=== PATIENT | female | born 1945 | race Caucasian/White ===

== ENCOUNTER 2018-07-21 08:46 | Day surgery (SDC) | payer MEDICARE, OTHER ==
[~2018-07-21 08:46] MED LIST: CALCIUM 600 +1 EAC2 PO; CEPH500; CHOL10002 PO; ESTR1; ESTR2 PO; GINKO BILOBA; LEVSOD125 PO; MOVEFREE PO; MULVITA; [UNRECOGNIZED DRUG - OTHER] PO
[2018-07-27] MEDS ORDERED: BIOTIN-D1 GM PO (11:24)
== END 2018-07-21 22:52 | disposition home or self-care (01) ==
LOC: RAD 08:46
DX: T84.030A Mechanical loosening of internal right hip prosthetic joint, initial encounter (principal)
CPT/HCPCS: 20610; 77002; 87070; 87075; 87205

== ENCOUNTER 2018-08-15 10:30 | Inpatient (IN) | payer MEDICARE, OTHER ==
[~2018-08-15] VITALS: Ht 172.7 cm; Wt 109.7 kg
[~2018-08-15 10:30] MED LIST changes: +BIOTIN-D1 GM PO
--- NOTE | 2018-08-30 07:24 | NUR ---
Ambulatory in Day Surgery History, Chart, Medications and Allergies reviewed before start of procedure.Patient confirms NPO status and agrees with scheduled surgery. Patient reports completing Chlorhexadine shower X2 prior to admission to hospital.Surgical site prepped with 2% Chlorhexidine cloth wipe.
--- NOTE | 2018-08-30 08:39 | NUR ---
08/30/18 0839 Josep Da Silva SECOND 18G IV PLACED BY THIS RN IN LEFT AC.
--- NOTE | 2018-08-30 14:52 | NUR ---
Pt gave permission to , [facility] permission to provide care 08/31/18.
--- NOTE | 2018-08-30 19:13 | NUR ---
SUMMARY DR. STYLES SAW PT THIS EVENING, NICOTINE PATCH ORDERED, PT TRIED TO AMBULATE OUTSIDE TO SMOKE BUT WAS TOO PAINFUL, MEDICATED WITH IV FENTANYL, DENIES ANY NAUSEA OR LOOSE STOOLS, NO ACUTE CHANGES THIS SHIFT.
--- NOTE | 2018-08-30 19:17 | NUR ---
SUMMARY DENIES ANY PAIN, MARIETTA MCCRACKEN FROM PACU REPORTS PT WAS NOT BLADDER SCANNED IN PACU, BLADDER SCAN DONE THIS AFTERNOON, PT HAD 272CC, STRAIGHT CATH DONE, DRAINED 300CC CLEAR YELLOW URINE, DRESSINGS C/D/I, NO ACUTE CHANGES THIS SHIFT.
[2018-08-31 04:31] LABS: BASOPHILS ABSOLUTE AUTO 0.02 K/mm3 (0.00-0.23); BASOPHILS PERCENT AUTO 0 % (0-2); EOSINOPHILS ABSOLUTE AUTO 0.02 K/mm3 (0.00-0.68); EOSINOPHILS PERCENT AUTO 0 % (0-6); Hematocrit 30.8 % (33.0-51.0); IMMATURE GRAN ABSOLUTE AUTO 0.03 K/mm3 (0.00-0.10); IMMATURE GRAN PERCENT AUTO 0 % (0-1); LYMPHOCYTES ABSOLUTE AUTO 1.47 K/mm3 (0.84-5.20); LYMPHOCYTES PERCENT AUTO 12 % (21-46); MONOCYTES ABSOLUTE AUTO 1.11 K/mm3 (0.16-1.47); MONOCYTES PERCENT AUTO 9 % (4-13); Mean Corpuscular HGB 31.2 pg (26.0-34.0); Mean Corpuscular HGB Conc 32.5 g/dL (31.5-36.5); Mean Corpuscular Volume 96 fL (80-100); Mean Platelet Volume 10.2 fL (9.1-12.4); NEUTROPHILS ABSOLUTE AUTO 9.35 K/mm3 (1.96-9.15); NEUTROPHILS PERCENT AUTO 78 % (41-73); Platelet Count 251 K/mm3 (150-400); RDW Coefficient Variation 13.9 % (11.7-14.2); RDW Standard Deviation 49.1 fL (35.1-46.3); Red Blood Cell Count 3.21 M/mm3 (3.80-5.20)
[2018-08-31 04:48] LABS: Anion Gap 8 mmol/L (6-16); Blood Urea Nitrogen 12 mg/dL (8-24); Bun/Creatinine Ratio 18.9 (12.0-20.0); CO2, Blood 26 mmol/L (21-32); Calcium, Blood 8.1 mg/dL (8.5-10.1); Chloride, Blood 107 mmol/L (98-108); Creatinine, Blood 0.63 mg/dL (0.40-1.00); Glomerular Filtration Rate >60 (60-); Glucose, Blood 106 mg/dL (70-99); Sodium, Blood 141 mmol/L (136-145)
--- NOTE | 2018-08-31 05:18 | NUR ---
SHIFT SUMMARY PT IS POD 1 R TOTAL HIP. 1 ASSIST UP W/ GB AND FWW TO THE BSC, ABLE TO TOLERATE BRIEF AMBULATION. SHE DID NOT HAVE TO BE CATH'D SHE WAS ABLE TO GET UP TO THE BSC AND VOID. PT IS A&O, ABLE TO MAKE NEEDS KNOWN. PAIN WITH MOVEMENT WHICH ABATES AT REST. PROVENA WOUND VAC IN PLACE, SUCTION INTACT. PT TO WORK WITH PT TODAY. WILL CTM UNTIL PASS TO NEXT SHIFT.
--- NOTE | 2018-08-31 09:49 | NUR ---
ASSISTED WITH AM ASSESSMENT PERFORMED BY SN LUND. DOCUMENTATION BY ASHELY ROWE REVIEWED. WILL CONTINUE TO MONITOR PT.
--- NOTE | 2018-08-31 18:06 | NUR ---
SHIFT SUMMARY PAIN HAS BEEN MANAGED WITH PO PAIN MEDICATION. PT IS A 1 ASSIST WHEN OOB; HOWEVER SHE DID NOT PASS THERAPY THIS AFTERNOON SO SHE WILL STAY ANOTHER NIGHT. VSS. WILL MONTOR UNTIL REPORT TO ONCOMING RN.
--- NOTE | 2018-09-01 07:33 | NUR ---
SUMMARY PT SLEPT OFF AND ON TONIGHT. REPORTED ADEQUATE PAIN CONTROL. VOIDING WITHOUT DIFF.
[2018-09-01] MEDS ORDERED: OXYC5 PO (11:41)
[2018-09-01] MEDS ORDERED: ASPI325EC PO (11:51)
--- NOTE | 2018-09-01 12:30 | NUR ---
[employer]ESS[employer] ATTEMPTED TO CHANGE WOUND VAC MACHINE FROM HOSPITAL MACHINE TO HOME MACHINE. THE HOME MACHINE HOLDS SUCTION BUT RUNS CONTINUOUSLY AND ALARMS INDICATING A LEAK IN THE TUBING. THE TUBING APPEARS TO BE COMPATIBLE AND NO LEAK WAS PRESENT PRIOR TO CHANGING THE MACHINE. HAVE ATTEMPTED TO RESTART THE MACHINE, ALL CONNECTIONS APPEAR TO BE WELL ATTATCHED. ATTEMPTED TO USE A DIFFERENT [employer] MACHINE, UNABLE TO DO SO SINCE THE CONNECTION WAS NOT COMPATIBLE. CALL PLACED TO DR. GARIBAY'S OFFICE AT APPROXIMATELY [id number]; AWAITING RETURN CALL.
--- NOTE | 2018-09-01 14:40 | NUR ---
SURGICAL DRESSING UNABLE TO GET A SEAL ON [employer] DRESSING WITH [facility] VAC FOR HOME. DR. GARIBAY WAS NOTIFIED AND ORDERED [employer] IF [employer] DRESSING WOULD NOT REMAIN SEALED. THE [facility] INDICATED THERE WAS A LEAK IN THE TUBING, TUBING WAS CHANGED AND LEAK PERSISTED. LEAK WAS NOT PRESENT WHEN ATTATCHED TO THE HOSPITAL VAC MACHINE. PER ORDER [employer] DRESSING WAS PLACED.
--- NOTE | 2018-09-01 16:14 | NUR ---
DISCHARGE PT PROVIDED WITH WRITTEN AND VERBAL DISCHARGE INSTRUCTIONS. PT AND S/O REPORTED UNDERSTANDING AFTER QUESTIONS WERE ANSWERED. REPLACEMENT DRESSINGS AND SCRIPT PROVIDED. PT ESCORTED OUT IN W/C BY LEANDRA MCKINNEY.
== END 2018-09-01 15:15 | disposition home or self-care (01) | DRG 468 ==
LOC: PRE IP 10:45 → SURS 08-30 06:10 → PRE IP 08-30 07:30 → SURS 08-30 14:24
PROVIDERS: ADMIT Orthopaedic Surgery
PROC: 0SW90JZ Revision of Synthetic Substitute in Right Hip Joint, Open Approach (ICD-10-PCS; principal; 2018-08-30 07:30)
DX: T84.030A Mechanical loosening of internal right hip prosthetic joint, initial encounter (principal); T84.050A Periprosthetic osteolysis of internal prosthetic right hip joint, initial encounter; E03.9 Hypothyroidism, unspecified
CPT/HCPCS: 36415; 72170; 80048; 83735; 85025; 86850; 86900; 86901; 97110; 97116; 97162; 97530; C1713; C1776; J0171; J0330; J0690; J0735; J1100; J1885; J2250; J2370; J2405; J2710; J2795; J3010; J7120

== ENCOUNTER 2018-10-16 09:54 | Emergency (ER) | payer MEDICARE, OTHER ==
[~2018-10-16] VITALS: Ht 172.7 cm; Wt 109.3 kg
[~2018-10-16 09:54] MED LIST changes: +ASPI325EC PO; +OXYC5 PO
== END 2018-10-16 13:11 | disposition home or self-care (01) ==
LOC: ER 09:54
DX: T84.020A Dislocation of internal right hip prosthesis, initial encounter (principal); X50.9XXA Other and unspecified overexertion or strenuous movements or postures, initial encounter; Z91.048 Other nonmedicinal substance allergy status; Z79.899 Other long term (current) drug therapy; Z79.82 Long term (current) use of aspirin; E03.9 Hypothyroidism, unspecified
CPT/HCPCS: 27265; 73501; 73502; 96374-59; 99152; 99283-25; J2405; J2704; J7030

== ENCOUNTER → 2020-04-23 | Outpatient (CLI) | payer MEDICARE, OTHER ==
[~2020-04-23] MED LIST changes: +LEVSOD150 PO
== END | disposition home or self-care (01) ==
LOC: PLD 09:22 → LAB SHORT 09:22
DX: L81.4 Other melanin hyperpigmentation (principal)
CPT/HCPCS: 88305; 88312

== ENCOUNTER → 2021-01-03 | Outpatient (CLI) | payer MEDICARE, OTHER | END | disposition home or self-care (01) | LOC: LAB SHORT 14:04 → LAB 14:04 | DX: R30.0 Dysuria (principal) | CPT/HCPCS: 87086 ==

== ENCOUNTER → 2022-04-06 | Outpatient (CLI) | payer MEDICARE, OTHER ==
[2022-04-06 13:08] LABS: BASOPHILS ABSOLUTE AUTO 0.06 K/mm3 (0.00-0.23); BASOPHILS PERCENT AUTO 1 % (0-2); EOSINOPHILS ABSOLUTE AUTO 0.18 K/mm3 (0.00-0.68); EOSINOPHILS PERCENT AUTO 3 % (0-6); Hematocrit 38.5 % (33.0-51.0); Hemoglobin 12.8 g/dL (11.5-16.0); IMMATURE GRAN ABSOLUTE AUTO 0.02 K/mm3 (0.00-0.10); IMMATURE GRAN PERCENT AUTO 0 % (0-1); LYMPHOCYTES ABSOLUTE AUTO 1.49 K/mm3 (0.84-5.20); LYMPHOCYTES PERCENT AUTO 20 % (21-46); MONOCYTES ABSOLUTE AUTO 0.63 K/mm3 (0.16-1.47); MONOCYTES PERCENT AUTO 9 % (4-13); Mean Corpuscular HGB 30.3 pg (26.0-34.0); Mean Corpuscular HGB Conc 33.2 g/dL (31.5-36.5); Mean Corpuscular Volume 91 fL (80-100); Mean Platelet Volume 11.8 fL (9.1-12.4); NEUTROPHILS ABSOLUTE AUTO 4.92 K/mm3 (1.96-9.15); NEUTROPHILS PERCENT AUTO 67 % (41-73); Platelet Count 318 K/mm3 (150-400); RDW Coefficient Variation 14.6 % (11.7-14.2); RDW Standard Deviation 48.7 fL (35.1-46.3); Red Blood Cell Count 4.23 M/mm3 (3.80-5.20)
[2022-04-06 14:08] LABS: Albumin, Blood 3.6 g/dL (3.4-5.0); Albumin/Globulin Ratio 1.2 (0.8-1.8); Bilirubin, Total 0.3 mg/dL (0.1-1.0); Bun/Creatinine Ratio 23.8 (12.0-20.0); Calcium, Blood 9.3 mg/dL (8.5-10.1); Creatinine, Blood 0.72 mg/dL (0.40-1.00); Globulin, Blood 3.1 g/dL (2.2-4.0); Total Protein, Blood 6.7 g/dL (6.4-8.2)
== END ==
LOC: LAB SHORT 12:11 → LAB 12:11
PROVIDERS: Physician Assistant
DX: R53.83 Other fatigue (principal); R19.7 Diarrhea, unspecified; R30.0 Dysuria
CPT/HCPCS: 80053; 85025; 87086

== ENCOUNTER → 2022-04-07 | Outpatient (CLI) | payer MEDICARE, OTHER ==
[2022-04-07 13:19] LABS: Adenovirus F 40/41 Not Detected (NOT DETECT); Astrovirus Not Detected (NOT DETECT); Campylobacter Sp Not Detected (NOT DETECT); Cryptosporidium Not Detected (NOT DETECT); Cyclospora Cayetanensis Not Detected (NOT DETECT); E. Coli O157 Not Detected (NOT DETECT); Entamoeba Histolytica Not Detected (NOT DETECT); Enteroaggregative E. coli-EAEC Not Detected (NOT DETECT); Enteropathogenic E. coli-EPEC Not Detected (NOT DETECT); Enterotoxigenic E. coli-ETEC Not Detected (NOT DETECT); Giardia Lamblia Not Detected (NOT DETECT); Norovirus GI/GII Not Detected (NOT DETECT); Plesiomonas Shigelloides Not Detected (NOT DETECT); Rotavirus A Not Detected (NOT DETECT); Salmonella Sp Not Detected (NOT DETECT); Sapovirus Not Detected (NOT DETECT); Shiga Toxin-prod E. coli-STEC Not Detected (NOT DETECT); Shigella/Enteroin E. coli-EIEC Not Detected (NOT DETECT); Vibrio Cholerae Not Detected (NOT DETECT); Vibrio Sp Not Detected (NOT DETECT); Yersinia Enterocolitica Not Detected (NOT DETECT)
== END ==
LOC: LAB 07:30 → LAB SHORT 07:30
PROVIDERS: Physician Assistant
DX: R19.7 Diarrhea, unspecified (principal)
CPT/HCPCS: 87507

== ENCOUNTER 2022-05-03 11:57 | Day surgery (SDC) | payer MEDICARE, OTHER ==
[~2022-05-03] VITALS: Ht 172.7 cm; Wt 94.3 kg
[2022-05-03] MEDS ORDERED: CALCA500S6 (12:24)
[2022-05-03] MEDS ORDERED: GLUCHON (12:24)
[2022-05-03] MEDS ORDERED: PSYSENPA (12:24)
== END 2022-05-03 13:55 | disposition home or self-care (01) ==
LOC: ORSCSDS 11:57
PROVIDERS: Internal Medicine Gastroenterology
PROC: 0DBE8ZX Excision of Large Intestine, Via Natural or Artificial Opening Endoscopic, Diagnostic (ICD-10-PCS; principal; 2022-05-03 13:30)
PROC: 0DBP8ZX Excision of Rectum, Via Natural or Artificial Opening Endoscopic, Diagnostic (ICD-10-PCS; principal; 2022-05-03 13:30)
DX: R19.7 Diarrhea, unspecified (principal); K57.30 Diverticulosis of large intestine without perforation or abscess without bleeding; K62.1 Rectal polyp; K52.832 Lymphocytic colitis; Z79.899 Other long term (current) drug therapy
CPT/HCPCS: 88305; J2704; J7120

== ENCOUNTER → 2022-07-09 | Outpatient (CLI) | payer MEDICARE, OTHER ==
[~2022-07-09] MED LIST changes: +CALCA500S6; +GLUCHON; +PSYSENPA
== END | disposition home or self-care (01) ==
LOC: LAB SHORT 14:03
DX: N39.0 Urinary tract infection, site not specified (principal)
CPT/HCPCS: 87077; 87086; 87186

== ENCOUNTER → 2024-02-06 | Outpatient (CLI) | payer MEDICARE, OTHER | LOC: LAB 15:24 → LAB SHORT 15:24 | DX: R30.0 Dysuria (principal) | CPT/HCPCS: 87086 ==

== ENCOUNTER → 2024-03-14 | Outpatient (CLI) | payer MEDICARE, OTHER | LOC: LAB 18:30 → LAB SHORT 18:30 | DX: R30.0 Dysuria (principal) | CPT/HCPCS: 87077; 87086; 87186 ==

== ENCOUNTER → 2024-09-04 | Outpatient (CLI) | payer MEDICARE, OTHER | END | disposition home or self-care (01) | LOC: LAB 17:31 → LAB SHORT 17:31 | DX: R35.0 Frequency of micturition (principal) | CPT/HCPCS: 87086 ==

== ENCOUNTER → 2024-10-24 | Outpatient (CLI) | payer MEDICARE, OTHER | LOC: LAB SHORT 12:00 → LAB 12:00 | DX: R30.0 Dysuria (principal) | CPT/HCPCS: 87086 ==

== ENCOUNTER 2025-05-29 07:12 | Day surgery (SDC) | payer MEDICARE, OTHER ==
[~2025-05-29] VITALS: Ht 172.7 cm; Wt 97.8 kg
[~2025-05-29 07:12] MED LIST changes: +AZO D-MANNOSE500 M1 PO; +Balanced Salt Epinephrine Irrigation Solution 500 mL IR SCH; -CALCA500S6; +CALCIUM 500+D1 EACH PO; +ERGO50000 PO; +Estradiol1 MG PO; -GLUCHON; +GLUCHON PO; +MULTI-VITAMIN1 EAC2 PO; +Moxifloxacin HCL 0.5 MG/0.1 ML 0.4MLSYR RIGHTEYE SCH; +Norco 5-325 Ta1 EACH PO; +Ondansetron 4 MG SoluTab MM PRN; +PHENYLEPHRINE\\TROPICAMIDE\\TETRACAINE OPHTHALMIC DILATING SOLN RIGHTEYE PRN; +Povidone-Iodine 450 DROP/30 ML Solution ONE; +Povidone-Iodine 450 DROP/30 ML Solution RIGHTEYE SCH; +TART CHERRY400 MG PO; +Tetracaine HCl/Pf 0.5% Opth Soln 4 ml ONE
--- NOTE | 2025-05-29 07:40 | NUR ---
05/29/25 0740 Mayela Mcintosh PT RATES ANXIETY 08/27 UPON ARRIVAL.
--- NOTE | 2025-05-29 08:26 | NUR ---
05/29/25 0826 Janee Washington 0822 BP:163/85 HR:69 02:96% RESP:16
[2025-05-29 08:41] VITALS: BP 163/80
== END 2025-05-29 08:55 | disposition home or self-care (01) ==
LOC: ORSCSDS 07:12
PROVIDERS: Student in an Organized Health Care Education/Training Program
PROC: 08RJ3JZ Replacement of Right Lens with Synthetic Substitute, Percutaneous Approach (ICD-10-PCS; principal; 2025-05-29 08:30)
DX: H25.813 Combined forms of age-related cataract, bilateral (principal); I10 Essential (primary) hypertension; E78.5 Hyperlipidemia, unspecified; E03.9 Hypothyroidism, unspecified; E66.01 Morbid (severe) obesity due to excess calories; Z79.899 Other long term (current) drug therapy
CPT/HCPCS: A9270; V2632